=== PATIENT | female | born 1970 | race Caucasian/White ===

== ENCOUNTER 2024-05-01 16:59 | Emergency (ER) | payer BC, OTHER ==
[2024-05-01 17:05] VITALS: PULSE 92; RESP 16; TEMP 98.2; BMI 28.3
[2024-05-01] MEDS ORDERED: CycloBENZAprine HCL 5 MG TABLET ONE (17:43)
[2024-05-01] MEDS ORDERED: KETOROLAC TROMETHAMINE 30 MG/1 ML VIAL ONE (17:43)
[2024-05-01] MEDS ORDERED: LIDOCAINE 5% TOPICAL PATCH ONE (17:43)
[2024-05-01] MEDS: LIDOCAINE 5% TOPICAL PATCH TP ONE (17:51)
[2024-05-01] MEDS: CycloBENZAprine HCL 10 MG TABLET (FP) PO ONE (17:51)
[2024-05-01] MEDS: KETOROLAC TROMETHAMINE 30 MG/1 ML VIAL IM ONE (17:52)
[2024-05-01 17:57] VITALS: BP 145/84
[2024-05-01] MEDS ORDERED: LIDOCAINE PATCH REMOVAL MC SCH (22:00)
== END 2024-05-01 18:17 | disposition home or self-care (01) ==
LOC: FER 16:59
PROC: 3E0233Z Introduction of Anti-inflammatory into Muscle, Percutaneous Approach (ICD-10-PCS; principal; 2024-05-01)
DX: S16.1XXA Strain of muscle, fascia and tendon at neck level, initial encounter (principal); X50.1XXA Overexertion from prolonged static or awkward postures, initial encounter
CPT/HCPCS: 99284-25